=== PATIENT | male | born 1945 | race Caucasian/White ===

== ENCOUNTER 2024-10-06 13:25 | Inpatient (IN) | payer MEDICARE ==
[~2024-10-06] VITALS: Ht 172.7 cm; Wt 82.5 kg
[~2024-10-06 13:25] MED LIST: IBUP-1985 PO
[2024-10-06] MEDS: normal saline 1000ml 1,000 ML IV ONE (15:39)
[2024-10-06] MEDS: acetaminophen 1,000mg/100ml IV 100 ML IV ONE (15:39)
[2024-10-06 15:45] LABS: BASOPHILS % (AUTO) 0.3 % (0-1); EOSINOPHILS % (AUTO) 0.1 % (0-6); HEMATOCRIT 47.6 % (42.0-52.0); LYMPHOCYTES # (AUTO) 0.3 X10'3 (1.1-4.8); LYMPHOCYTES % (AUTO) 2.3 % (21-51); MEAN CORPUSCULAR HEMOGLOBIN 31.6 PG (27.0-31.0); MEAN CORPUSCULAR HGB CONC 33.6 g/dL (33.0-36.5); MEAN CORPUSCULAR VOLUME 94.2 FL (78-98); MEAN PLATELET VOLUME 7.5 FL (7.4-10.4); MONOCYTES # (AUTO) 0.4 X10'3 (0-0.9); MONOCYTES % (AUTO) 2.8 % (2-12); NEUTROPHILS # (AUTO) 13.7 X10'3 (1.8-7.7); NEUTROPHILS % (AUTO) 94.5 % (42-75); PLATELET COUNT 267 X10'3 (140-440); RED BLOOD COUNT 5.05 X10'6 (4.70-6.10); RED CELL DISTRIBUTION WIDTH 14.1 % (11.5-14.5); WHITE BLOOD COUNT 14.5 X10'3 (4.5-11.0)
[2024-10-06 16:02] LABS: ALANINE AMINOTRANSFERASE 26 U/L (12-78); ALBUMIN 3.6 G/DL (3.4-5.0); ALBUMIN/GLOBULIN RATIO 0.7 (1.1-1.5); ALKALINE PHOSPHATASE 94 IU/L (46-116); ANION GAP 10 (8-16); ASPARTATE AMINO TRANSFERASE 17 U/L (10-37); BILIRUBIN,TOTAL 0.7 MG/DL (0.1-1.0); BLOOD UREA NITROGEN 19 MG/DL (7-18); BUN/CREATININE RATIO 17.3 (10.0-20.0); CALCIUM 9.2 MG/DL (8.5-10.1); CHLORIDE 101 MMOL/L (99-107); GLUCOSE 133 MG/DL (70-104); POTASSIUM 3.8 MMOL/L (3.5-5.1); SODIUM 138 MMOL/L (135-145); TOTAL CARBON DIOXIDE 27.4 MMOL/L (24-32); TOTAL PROTEIN 8.7 G/DL (6.4-8.2); eCRCL 53 ML/MIN; eGFR 65 ML/MIN
[2024-10-06] MEDS: ringers solution, lacted 1,000 ML IV ONE (16:51)
[2024-10-06 17:25] LABS: BILIRUBIN,URINE NEGATIVE (Neg); CLARITY,URINE CLEAR (Clear); COLOR,URINE YELLOW (Yellow); GLUCOSE, URINE NEGATIVE (Neg); KETONES,URINE 15 mg/dl (Neg); LEUKOCYTE ESTERASE ,URINE NEGATIVE (Neg); NITRITES, URINE NEGATIVE (Neg); OCCULT BLOOD,URINE NEGATIVE (Neg); PROTEIN,URINE 30 mg/dl (Neg); UROBILINOGEN,URINE 0.2 E.U/dL (0.2-1.0)
[2024-10-06 18:03] LABS: UA COLLECTION TYPE NON-SPECIFIED
[2024-10-06 18:09] LABS: RBC,URINE 0-2 /HPF (0-2)
[2024-10-06 18:10] LABS: BACTERIA,URINE FEW /HPF (Neg); HYALINE CASTS 0-3 /LPF (NEGATIVE); SQUAMOUS EPITHELIAL CELL,UR FEW /LPF (FEW)
[2024-10-06] MEDS: CefTRIAXone 2gm/D5W 50ml BAG 50 ML IV ONE (22:41)
[2024-10-06 23:12] LABS: GLUCOSE,CSF 76 MG/DL (40-75); TOTAL PROTEIN,CSF 65 MG/DL (30-60)
[2024-10-06 23:14] LABS: APPEARANCE,CSF SL HAZY
[2024-10-06 23:15] LABS: CSF SUPERNATANT COLOR XANTHOCHROMIC; CSF VOLUME 9 ML; TUBE# COUNTED 4
[2024-10-06 23:36] LABS: CSF RBC 1680 /CU MM (0); CSF WBC CT 5 /CU MM (0-5)
[2024-10-06] MEDS: ketorolac trometh 15mg/ml vial 15 MG/ML ML IV ONE (23:41)
[2024-10-06] MEDS ORDERED: vancomycin inj 1,000 MG in normal saline 250ml IV soln 250 ML IV ONE (23:50)
[2024-10-07] MEDS: vancomycin/NS 1 GM ADD-VANTAGE 250 ML IV ONE (00:08)
[2024-10-07] MEDS ORDERED: ACET-1008 PO (01:34)
[2024-10-07] MEDS ORDERED: DICL100G31 TOP (01:35)
[2024-10-07] MEDS: NORMAL SALINE IV SCH (02:15)
[2024-10-07] MEDS: ACYCLOVIR IV SCH (02:15)
[2024-10-07] MEDS ORDERED: ondansetron/PF 4mg/2ml inj IV PRN (02:20)
[2024-10-07] MEDS ORDERED: potassium Cl 40MEQ/1/2NS 520ml 520 ML IV PRN (02:20)
[2024-10-07] MEDS ORDERED: magnesium sulf-water 4G/100mL 100 ML IV PRN (02:20)
[2024-10-07] MEDS ORDERED: magnesium Cl slow-release 64mg tablet PO PRN (02:20)
[2024-10-07] MEDS ORDERED: magnesium hydroxide 30ml (MOM) UD suspension PO PRN (02:20)
[2024-10-07] MEDS ORDERED: acetaminophen 325mg tablet PO PRN (02:20)
[2024-10-07] MEDS ORDERED: mag hydrox/Alum hydrox/simeth 30ml oral suspension PO PRN (02:20)
[2024-10-07] MEDS ORDERED: potassium Cl 20 mEq SR tablet PO PRN (02:20)
[2024-10-07] MEDS ORDERED: magnesium sulf-water 2g/50mL 50 ML IV PRN (02:20)
[2024-10-07] MEDS ORDERED: morphine 2 MG/ML inj. syringe IV PRN (02:20)
[2024-10-07] MEDS: acetaminophen 1,000mg/100ml IV 100 ML IV ONE (02:30)
[2024-10-07 02:46] LABS: APTT 29 SECONDS (22-32); INR 1.1 INR; PROTHROMBIN TIME 11.6 SECONDS (9.0-12.0)
[2024-10-07] MEDS: normal saline 1000ml 1,000 ML IV SCH (02:52)
[2024-10-07] MEDS: vancomycin/NS 1 GM ADD-VANTAGE 250 ML X 1 DOSE IV STA (07:33)
[2024-10-07] MEDS: K and/or MAG REPLACEMENT MC SCH (08:00)
[2024-10-07] MEDS ORDERED: VANCOMYCIN 1,500MG inj. 1,500 MG in normal saline 500ml IV soln 300 ML IV SCH (08:00)
[2024-10-07] MEDS: heparin, porcine 5000 units/ml vial SQ SCH (08:00)
[2024-10-07] MEDS: docusate sod 100mg capsule PO SCH (08:00)
[2024-10-07] MEDS: GADOTERATE MEGLUMINE 7.5 MMOL/15 ML VIAL IV ONE (13:10)
[2024-10-07] MEDS: acetaminophen 325mg tablet PO PRN (13:53)
[2024-10-07 15:00] VITALS: BP 114/53; PULSE 76; RESP 19; TEMP 98.3; TEMP 99.6; O2SAT 94
[2024-10-07 17:30] VITALS: RESP 19; O2SAT 96
[2024-10-07 18:00] VITALS: BP 138/64; PULSE 76; RESP 10; TEMP 99.7; O2SAT 96
[2024-10-07] MEDS ORDERED: CHOL125C7 PO (18:25)
[2024-10-07] MEDS ORDERED: MULT-1172 PO (18:25)
[2024-10-07] MEDS: vancomycin/NS 1 GM ADD-VANTAGE 250 ML IV SCH (19:08)
[2024-10-07] MEDS: DICLOFENAC SODIUM 1% gel 1 50GM tube TP SCH (19:09)
[2024-10-07 20:00] VITALS: RESP 10; O2SAT 96
[2024-10-07] MEDS: CefTRIAXone 2gm/D5W 50ml BAG 50 ML IV SCH (21:48)
[2024-10-07 22:00] VITALS: BP 132/55; PULSE 73; RESP 20; TEMP 97.8; O2SAT 93
[2024-10-07] MEDS ORDERED: CefTRIAXone/D5W-Rocephin 1gm 50 ML IV SCH (23:00)
[2024-10-08] VITALS (11 sets, daily range): BP systolic 117–149; BP diastolic 61–91; PULSE 74–152; RESP 16–20; TEMP 97.1–100; O2SAT 90–95
[2024-10-08] MEDS: metoprolol tartrate 1mg/ml inj IV ONE ×2 (02:05→03:52)
[2024-10-08 06:41] LABS: BASOPHILS # (AUTO) 0.1 X10'3 (0-0.2); BASOPHILS % (AUTO) 0.6 % (0-1); EOSINOPHILS % (AUTO) 0.1 % (0-6); HEMATOCRIT 41.6 % (42.0-52.0); LYMPHOCYTES # (AUTO) 1.3 X10'3 (1.1-4.8); LYMPHOCYTES % (AUTO) 9.5 % (21-51); MEAN CORPUSCULAR HEMOGLOBIN 31.8 PG (27.0-31.0); MEAN CORPUSCULAR HGB CONC 33.6 g/dL (33.0-36.5); MEAN CORPUSCULAR VOLUME 94.8 FL (78-98); MONOCYTES % (AUTO) 7.4 % (2-12); NEUTROPHILS # (AUTO) 11.2 X10'3 (1.8-7.7); NEUTROPHILS % (AUTO) 82.4 % (42-75); PLATELET COUNT 234 X10'3 (140-440); RED BLOOD COUNT 4.39 X10'6 (4.70-6.10); RED CELL DISTRIBUTION WIDTH 13.9 % (11.5-14.5); WHITE BLOOD COUNT 13.6 X10'3 (4.5-11.0)
[2024-10-08 06:56] LABS: ALANINE AMINOTRANSFERASE 41 U/L (12-78); ALBUMIN 2.6 G/DL (3.4-5.0); ALBUMIN/GLOBULIN RATIO 0.7 (1.1-1.5); ALKALINE PHOSPHATASE 104 IU/L (46-116); ANION GAP 10 (8-16); ASPARTATE AMINO TRANSFERASE 48 U/L (10-37); BILIRUBIN,TOTAL 0.4 MG/DL (0.1-1.0); BLOOD UREA NITROGEN 17 MG/DL (7-18); BUN/CREATININE RATIO 16.7 (10.0-20.0); CALCIUM 8.4 MG/DL (8.5-10.1); CHLORIDE 108 MMOL/L (99-107); CREATININE 1.02 MG/DL (0.60-1.10); GLUCOSE 106 MG/DL (70-104); MAGNESIUM 1.9 MG/DL (1.5-2.4); PHOSPHORUS 2.2 MG/DL (2.3-4.5); POTASSIUM 3.4 MMOL/L (3.5-5.1); SODIUM 142 MMOL/L (135-145); TOTAL CARBON DIOXIDE 24.4 MMOL/L (24-32); TOTAL PROTEIN 6.6 G/DL (6.4-8.2); eCRCL 57 ML/MIN; eGFR 70 ML/MIN
[2024-10-08] MEDS: metoprolol succinate 25mg (24-HOUR) SR. Tablet PO SCH (08:21)
[2024-10-08] MEDS: potassium Cl 20 mEq SR tablet PO PRN (08:21)
[2024-10-08] MEDS ORDERED: pantoprazole 40 MG vial IV SCH (12:55)
[2024-10-08] MEDS: pantoprazole 40 MG vial IV ONE (14:17)
[2024-10-08 14:27] LABS: HEMATOCRIT 40.5 % (42.0-52.0); HEMOGLOBIN 13.6 g/dl (14.0-17.9); MEAN CORPUSCULAR HEMOGLOBIN 31.7 PG (27.0-31.0); MEAN CORPUSCULAR HGB CONC 33.6 g/dL (33.0-36.5); MEAN CORPUSCULAR VOLUME 94.3 FL (78-98); MEAN PLATELET VOLUME 7.9 FL (7.4-10.4); PLATELET COUNT 220 X10'3 (140-440); RED CELL DISTRIBUTION WIDTH 13.8 % (11.5-14.5); WHITE BLOOD COUNT 12.9 X10'3 (4.5-11.0)
[2024-10-08] MEDS: VANCOMYCIN LEVEL IV ONE (19:49)
[2024-10-08] MEDS ORDERED: apixaban 5mg tablet PO SCH (20:00)
[2024-10-08] MEDS: HYDROcodone/acetaminophen 5mg/325mg tablet PO PRN (20:01)
[2024-10-08] MEDS: vancomycin/NS 1 GM ADD-VANTAGE 250 ML IV SCH (20:02)
[2024-10-08 20:06] LABS: HEMATOCRIT 43.2 % (42.0-52.0); HEMOGLOBIN 14.4 g/dl (14.0-17.9); MEAN CORPUSCULAR HEMOGLOBIN 31.4 PG (27.0-31.0); MEAN CORPUSCULAR HGB CONC 33.4 g/dL (33.0-36.5); MEAN PLATELET VOLUME 7.8 FL (7.4-10.4); PLATELET COUNT 247 X10'3 (140-440); RED CELL DISTRIBUTION WIDTH 14.1 % (11.5-14.5); WHITE BLOOD COUNT 13.1 X10'3 (4.5-11.0)
[2024-10-09] VITALS (20 sets, daily range): BP systolic 121–165; BP diastolic 58–105; PULSE 90–134; RESP 19–40; TEMP 97.2–100.9; O2SAT 90–96
[2024-10-09] MEDS: metoprolol tartrate 1mg/ml inj IV SCH ×2 (00:49→01:50)
[2024-10-09] MEDS: diltiazem-NS 100mg/100ml 100 ML IV SCH (06:16)
[2024-10-09] MEDS: metoprolol succinate 25mg (24-HOUR) SR. Tablet PO SCH (07:11)
[2024-10-09] MEDS: pantoprazole 40 MG vial IV SCH (07:12)
[2024-10-09] MEDS: levalbuterol 0.63mg/3ml nebule IH ONE (07:30)
[2024-10-09 08:32] LABS: ALANINE AMINOTRANSFERASE 58 U/L (12-78); ALBUMIN 2.7 G/DL (3.4-5.0); ALBUMIN/GLOBULIN RATIO 0.6 (1.1-1.5); ALKALINE PHOSPHATASE 150 IU/L (46-116); ANION GAP 16 (8-16); ASPARTATE AMINO TRANSFERASE 56 U/L (10-37); BILIRUBIN,TOTAL 0.6 MG/DL (0.1-1.0); BLOOD UREA NITROGEN 20 MG/DL (7-18); BUN/CREATININE RATIO 21.1 (10.0-20.0); CALCIUM 8.8 MG/DL (8.5-10.1); CHLORIDE 108 MMOL/L (99-107); CREATININE 0.95 MG/DL (0.60-1.10); GLUCOSE 131 MG/DL (70-104); SODIUM 145 MMOL/L (135-145); TOTAL CARBON DIOXIDE 20.9 MMOL/L (24-32); TOTAL PROTEIN 7.3 G/DL (6.4-8.2); eCRCL 61 ML/MIN; eGFR 76 ML/MIN
[2024-10-09 09:40] LABS: BASOPHILS # (AUTO) 0.1 X10'3 (0-0.2); BASOPHILS % (AUTO) 0.8 % (0-1); EOSINOPHILS % (AUTO) 0.2 % (0-6); HEMATOCRIT 43.7 % (42.0-52.0); HEMOGLOBIN 14.5 g/dl (14.0-17.9); LYMPHOCYTES # (AUTO) 0.5 X10'3 (1.1-4.8); LYMPHOCYTES % (AUTO) 3.4 % (21-51); MEAN CORPUSCULAR HEMOGLOBIN 31.4 PG (27.0-31.0); MEAN PLATELET VOLUME 8.5 FL (7.4-10.4); MONOCYTES # (AUTO) 0.9 X10'3 (0-0.9); MONOCYTES % (AUTO) 5.7 % (2-12); NEUTROPHILS # (AUTO) 14.5 X10'3 (1.8-7.7); NEUTROPHILS % (AUTO) 89.9 % (42-75); PLATELET COUNT 256 X10'3 (140-440); RED CELL DISTRIBUTION WIDTH 13.8 % (11.5-14.5); WHITE BLOOD COUNT 16.1 X10'3 (4.5-11.0)
[2024-10-09] MEDS: ipratropium/albuterol 3ml nebule NEB PRN (10:56)
[2024-10-09 11:46] LABS: OCCULT BLOOD STOOL NEGATIVE (Neg)
[2024-10-09] MEDS: loperamide 2mg capsule PO ONE (14:49)
[2024-10-09] MEDS: lactobacillus rhamnosus 10,000 MMU CELLS/CAPSULE PO SCH (14:49)
[2024-10-09] MEDS: morphine 2 MG/ML inj. syringe IV PRN (15:47)
[2024-10-09] MEDS: diltiazem CD 120mg capsule (once-daily) PO SCH (17:47)
[2024-10-09 19:19] LABS: D-DIMER 1.71 MG/L FEU (0-0.50)
[2024-10-09] MEDS ORDERED: VANCOmycin 1250MG/NS 250ml Bag 250 ML IV SCH (20:00)
[2024-10-09] MEDS ORDERED: iohexol 350MG/ML 100ml bottle IV ONE (20:50)
[2024-10-09] MEDS: apixaban 5mg tablet PO SCH (21:36)
[2024-10-09] MEDS: clindamycin 600mg/D5W 50ml 50 ML IV SCH (21:37)
[2024-10-10] VITALS (15 sets, daily range): BP systolic 115–156; BP diastolic 66–93; PULSE 83–143; RESP 18–28; TEMP 97.3–98.6; O2SAT 88–96
[2024-10-10 07:10] LABS: HSV 1 PCR Negative (Negative); HSV 2 PCR Negative (Negative)
[2024-10-10 08:27] LABS: BASOPHILS % (AUTO) 0.4 % (0-1); EOSINOPHILS % (AUTO) 0.4 % (0-6); HEMATOCRIT 37.6 % (42.0-52.0); HEMOGLOBIN 12.7 g/dl (14.0-17.9); LYMPHOCYTES % (AUTO) 8.2 % (21-51); MEAN CORPUSCULAR HEMOGLOBIN 31.1 PG (27.0-31.0); MEAN CORPUSCULAR HGB CONC 33.7 g/dL (33.0-36.5); MEAN CORPUSCULAR VOLUME 92.2 FL (78-98); MEAN PLATELET VOLUME 8.2 FL (7.4-10.4); MONOCYTES # (AUTO) 1.1 X10'3 (0-0.9); MONOCYTES % (AUTO) 9.1 % (2-12); NEUTROPHILS % (AUTO) 81.9 % (42-75); PLATELET COUNT 250 X10'3 (140-440); RED BLOOD COUNT 4.08 X10'6 (4.70-6.10); RED CELL DISTRIBUTION WIDTH 13.8 % (11.5-14.5); WHITE BLOOD COUNT 12.2 X10'3 (4.5-11.0)
[2024-10-10 08:45] LABS: ALANINE AMINOTRANSFERASE 40 U/L (12-78); ALBUMIN 2.1 G/DL (3.4-5.0); ALBUMIN/GLOBULIN RATIO 0.5 (1.1-1.5); ALKALINE PHOSPHATASE 109 IU/L (46-116); ANION GAP 9 (8-16); ASPARTATE AMINO TRANSFERASE 25 U/L (10-37); BILIRUBIN,TOTAL 0.7 MG/DL (0.1-1.0); BLOOD UREA NITROGEN 21 MG/DL (7-18); BUN/CREATININE RATIO 24.1 (10.0-20.0); CALCIUM 8.4 MG/DL (8.5-10.1); CHLORIDE 107 MMOL/L (99-107); CREATININE 0.87 MG/DL (0.60-1.10); GLUCOSE 117 MG/DL (70-104); PHOSPHORUS 2.6 MG/DL (2.3-4.5); POTASSIUM 3.3 MMOL/L (3.5-5.1); SODIUM 142 MMOL/L (135-145); THYROID STIMULATING HORMONE 1.54 ulU/ml (0.34-4.50); TOTAL CARBON DIOXIDE 26.5 MMOL/L (24-32); TOTAL PROTEIN 6.2 G/DL (6.4-8.2); eCRCL 67 ML/MIN; eGFR 85 ML/MIN
[2024-10-10] MEDS ORDERED: magnesium Cl slow-release 64mg tablet PO PRN (09:55)
[2024-10-10] MEDS ORDERED: magnesium sulf-water 4G/100mL 100 ML IV PRN (09:55)
[2024-10-10] MEDS ORDERED: potassium Cl 20 mEq SR tablet PO PRN (09:55)
[2024-10-10] MEDS ORDERED: potassium Cl 40MEQ/1/2NS 520ml 520 ML IV PRN (09:55)
[2024-10-10] MEDS ORDERED: magnesium sulf-water 2g/50mL 50 ML IV PRN (09:55)
[2024-10-10] MEDS: potassium Cl 20 mEq SR tablet PO PRN (10:22)
[2024-10-10] MEDS: diltiazem 5mg/ml 5ml inj. IV ONE (10:26)
[2024-10-10] MEDS: prednisone 10mg tablet PO SCH (12:42)
[2024-10-10 13:35] LABS: PRO BRAIN NATRIURETIC PEPTIDE 6895 PG/ML (0-450)
[2024-10-10] MEDS: ampicillin inj 2 GM in normal saline 100ml IV soln 100 ML IV SCH (13:51)
[2024-10-10] MEDS: albuterol 2.5 MG/3 ML nebule NEB PRN (15:48)
[2024-10-10 17:11] LABS: CRYPTOCOCCUS AG TITER, CSF Not Indicated (.); CRYPTOCOCCUS ANTIGEN, CSF Negative (Negative)
[2024-10-10] MEDS: K and/or MAG REPLACEMENT MC SCH (20:00)
[2024-10-10] MEDS: diltiazem SR 60mg capsule (twice daily) PO SCH (20:14)
[2024-10-10] MEDS: furosemide 40mg/4ml inj IV SCH (20:15)
[2024-10-11] VITALS (10 sets, daily range): BP systolic 110–134; BP diastolic 51–69; PULSE 74–98; RESP 16–23; TEMP 96.9–97.3; O2SAT 93–96
[2024-10-11] MEDS ORDERED: VANCOMYCIN LEVEL IV ONE (07:30)
[2024-10-11 08:03] LABS: BASOPHILS % (AUTO) 0.4 % (0-1); EOSINOPHILS % (AUTO) 0.1 % (0-6); HEMATOCRIT 39.3 % (42.0-52.0); HEMOGLOBIN 13.2 g/dl (14.0-17.9); LYMPHOCYTES % (AUTO) 8.6 % (21-51); MEAN CORPUSCULAR HGB CONC 33.7 g/dL (33.0-36.5); MEAN CORPUSCULAR VOLUME 92.2 FL (78-98); MEAN PLATELET VOLUME 7.8 FL (7.4-10.4); MONOCYTES # (AUTO) 0.8 X10'3 (0-0.9); MONOCYTES % (AUTO) 7.5 % (2-12); NEUTROPHILS # (AUTO) 9.2 X10'3 (1.8-7.7); NEUTROPHILS % (AUTO) 83.4 % (42-75); PLATELET COUNT 285 X10'3 (140-440); RED BLOOD COUNT 4.26 X10'6 (4.70-6.10); RED CELL DISTRIBUTION WIDTH 13.8 % (11.5-14.5)
[2024-10-11 08:30] LABS: ALANINE AMINOTRANSFERASE 64 U/L (12-78); ALBUMIN 2.1 G/DL (3.4-5.0); ALBUMIN/GLOBULIN RATIO 0.5 (1.1-1.5); ALKALINE PHOSPHATASE 129 IU/L (46-116); ANION GAP 5 (8-16); ASPARTATE AMINO TRANSFERASE 43 U/L (10-37); BILIRUBIN,TOTAL 0.5 MG/DL (0.1-1.0); BLOOD UREA NITROGEN 23 MG/DL (7-18); BUN/CREATININE RATIO 26.7 (10.0-20.0); CALCIUM 8.7 MG/DL (8.5-10.1); CHLORIDE 109 MMOL/L (99-107); CREATININE 0.86 MG/DL (0.60-1.10); GLUCOSE 124 MG/DL (70-104); MAGNESIUM 2.2 MG/DL (1.5-2.4); PHOSPHORUS 2.4 MG/DL (2.3-4.5); POTASSIUM 3.8 MMOL/L (3.5-5.1); SODIUM 145 MMOL/L (135-145); TOTAL CARBON DIOXIDE 30.7 MMOL/L (24-32); TOTAL PROTEIN 6.3 G/DL (6.4-8.2); eCRCL 67 ML/MIN; eGFR 86 ML/MIN
[2024-10-11] MEDS ORDERED: PRED10TA PO (10:19)
[2024-10-11] MEDS ORDERED: METO-395 PO (10:19)
[2024-10-11] MEDS ORDERED: CARSR60C PO (10:19)
[2024-10-11] MEDS ORDERED: APIX5TAB3 PO (10:19)
[2024-10-11] MEDS ORDERED: IPRA4AER INH (10:57)
[2024-10-11] MEDS ORDERED: ALBU18HF2 IH (10:58)
[2024-10-11] MEDS ORDERED: AMOX500C2 PO (11:37)
[2024-10-11] MEDS ORDERED: FURO-150 PO (12:12)
[2024-10-11] MEDS ORDERED: POTA-207 PO (12:16)
[2024-10-11 13:31] LABS: VDRL, CSF Non Reactive (Non Rea:<1:1)
[2024-10-11] MEDS ORDERED: LACT1CAP26 PO (14:58)
[2024-10-12] MEDS ORDERED: pantoprazole 40mg Tablet.DR PO SCH (07:30)
== END 2024-10-11 16:50 | disposition home health service (06) | DRG 871 ==
LOC: ER 13:25 → ED HOLD 10-07 01:57 → EDBEDREQ 10-07 10:50 → PCU 3S 10-07 15:29
PROVIDERS: ADMIT Internal Medicine Critical Care Medicine; ATTEND Family Medicine
PROC: 009U3ZX Drainage of Spinal Canal, Percutaneous Approach, Diagnostic (ICD-10-PCS; principal; 2024-10-06)
PROC: 5A09357 Assistance with Respiratory Ventilation, Less than 24 Consecutive Hours, Continuous Positive Airway Pressure (ICD-10-PCS; 2024-10-08)
PROC: B32T1ZZ Computerized Tomography (CT Scan) of Left Pulmonary Artery using Low Osmolar Contrast (ICD-10-PCS; 2024-10-09)
PROC: B3201ZZ Computerized Tomography (CT Scan) of Thoracic Aorta using Low Osmolar Contrast (ICD-10-PCS; 2024-10-09)
PROC: B32S1ZZ Computerized Tomography (CT Scan) of Right Pulmonary Artery using Low Osmolar Contrast (ICD-10-PCS; 2024-10-09)
DX: A40.8 Other streptococcal sepsis (principal); I50.33 Acute on chronic diastolic (congestive) heart failure; J18.9 Pneumonia, unspecified organism; L03.116 Cellulitis of left lower limb; I13.0 Hypertensive heart and chronic kidney disease with heart failure and stage 1 through stage 4 chronic kidney disease, or unspecified chronic kidney disease; Z20.822 Contact with and (suspected) exposure to COVID-19; N18.30 Chronic kidney disease, stage 3 unspecified; R73.9 Hyperglycemia, unspecified; G89.29 Other chronic pain; M54.9 Dorsalgia, unspecified; G47.33 Obstructive sleep apnea (adult) (pediatric); I08.1 Rheumatic disorders of both mitral and tricuspid valves; I48.0 Paroxysmal atrial fibrillation; Z99.81 Dependence on supplemental oxygen; I48.91 Unspecified atrial fibrillation
CPT/HCPCS: 36415; 70450; 70553; 71045; 71275; 72158; 80053; 80202; 81001; 82272; 82945; 83605; 83735; 83880; 83916; 84100; 84132; 84145; 84157; 84443; 85025; 85027; 85379; 85610; 85730; 86592; 87015; 87040; 87070; 87077; 87081; 87088; 87186; 87502; 87503; 87529; 87811; 87899; 89051; 93005; 93306; 93971; 94640; 94760; 96365; 96367; 96375; 97161; 97530; 99291; A4615; A4620; A6250; A6258; G0378; J0131; J0133; J0290; J0696; J1644; J1885; J1940; J2270; J2470; J3370; J3490; J7030; J7040; J7050; J7120; J7512; J7614; Q9967

== ENCOUNTER 2025-06-10 06:38 | Emergency (ER) | payer MEDICARE ==
[~2025-06-10] VITALS: Ht 172.7 cm; Wt 86.0 kg
[~2025-06-10 06:38] MED LIST changes: +ACET-1015 PO; +APIX5TAB5 PO; +CHOL100046 PO; +CYAN500T71 PO; +DICL100G59 TOP; -IBUP-1985 PO; +MULT-1172 PO
--- NOTE | 2025-06-10 07:29 | Physician Documentation ---
History of Present Illness ~ Chief Complaint: Headache Stated Complaint: HEADACHE/POST ALAYNA Time Seen by MD: 07:21 Primary Medical Doctor: Dr. He RAJPUT The patient is a 79-year-old male with a history of atrial fibrillation, melena, hyperlipidemia, chronic back pain. He underwent a Watchman procedure three weeks ago. He is still currently taking apixaban. He woke up at 3:00 a.m. with a headache. This is his usual time of awakening as he works at [employer]. The headache is frontal. He does not usually get headaches. He did not take his Eliquis as scheduled 6:00 a.m. today but his last dose was yesterday 6:00 p.m. He denies vomiting and has very mild nausea. Denies any recent illness, chills or fever. He denies neck pain. No associated neurological symptoms. Medication Reconciliation Allergies: Coded Allergies: No Known Allergies (Unverified , 06/10/25) Scheduled Acetaminophen (Acetaminophen), 1 TAB PO Q6H, (Reported) Apixaban (Eliquis), 1 TAB PO BID, (Reported) Cholecalciferol (Vitamin D3) (Vitamin D3), 1 CAP PO DAILY, (Reported) Cyanocobalamin* (Vitamin B-12*), 1 TAB PO DAILY, (Reported) Multivit-Min/FA/Lycopen/Lutein (Centrum Silver Men Tablet), 1 TAB PO DAILY, (Reported) Scheduled PRN Diclofenac Sodium (Diclofenac Sodium), 1 APPLIC TOP Q6H PRN for pain, (Reported) Past Medical History Patient History: FH: Parkinson's disease Brother FH: coronary artery bypass surgery FATHER, FH: diabetes mellitus FATHER, FH: heart failure MOTHER, Review of Systems ROS Constitutional: Denies chills, fatigue, fever, weight gain or weight loss. HEENT: Denies hearing loss, sinus pressure or visual changes. Respiratory: Denies cough, shortness of breath or wheezing. Cardiovascular: Denies chest pain, pain while walking (claudication), edema or palpitations. Gastrointestinal: Denies abdominal pain, blood in stool, constipation, diarrhea, heartburn, loss of appetite, nausea or vomiting. Genitourinary: Denies painful urination (dysuria), excessive amount of urine (polyuria) or urinary frequency. Metabolic/Endocrine: Denies cold intolerance, heat intolerance, excessive thirst (polydipsia) or excessive hunger (polyphagia). Neurological: Headache. Psychiatric: Denies anxiety or depression. Integumentary: Denies breast discharge, breast lump, hives, mole change(s), rash or skin lesion. Musculoskeletal: Denies back pain, joint pain, joint swelling or neck pain. Hematologic: Denies easily bleeding, easily bruises, lymphedema or issues with blood clots. Immunologic: Denies food allergies or seasonal allergies. Physical Exam Vital Signs: Temperature: 97.9, Source: Temporal, Heart Rate: 68, Respiratory Rate: 18, BP: 139/66, Pulse Oximetry: 95, Weight: 86.000 Oxygen Flow Rate: 0 Physical Exam Physical Exam Vitals and nursing note reviewed. Constitutional: General: Patient is awake, alert, oriented x 4 in no acute distress and well appearing. Speech is clear and lucid. Appearance: Normal appearance. Patient is not ill-appearing, toxic-appearing or diaphoretic. HENT: Head: Normocephalic and atraumatic. Mouth/Throat: Mouth: Mucous membranes are moist. Pharynx: Oropharynx is clear. Eyes: General: No scleral icterus. Extraocular Movements: Extraocular movements intact. Pupils: Pupils are equal, round, and reactive to light. Neck: Supple, no Kernig or Brudzinski sign. Cardiovascular: Rate and Rhythm: Normal rate and regular rhythm. Heart sounds: No murmur heard. Pulmonary: Effort: No respiratory distress. Breath sounds: No wheezing, rhonchi or rales. Abdominal: General: There is no distension. Palpations: There is no fluid wave, hepatomegaly or mass. Tenderness: There is no abdominal tenderness. There is no guarding. Musculoskeletal: General: No swelling or deformity. Skin: Coloration: Skin is not jaundiced. Findings: No erythema or rash. Neurological examination: GCS: E-4, V-5, M-6 Motor strength: [motor strength] Sensory: [sensory] cytology technologist: II - XII intact Equilibratory intact Progress Progress Note 06/10/2025, 8:40 a.m.: CT scan of the head shows no acute findings. The patient is feeling better and would like to go home. I am going to provide a work excuse for today. Results/Orders Results/Orders Orders - DE MARLENI LAIRDDRIC MD Ct Head (06/10/25 07:34) Completed Orders - CISCO TORRES MD Ct Head (06/10/25 07:34) Ondansetron Disint. Tablet (Zofran Odt T (06/10/25 07:35) Hydrocodone/Apap 5/325mg Tab ([place] 5/32 (06/10/25 07:35) Medications Received in ER Medications (Trade) Dose Ordered Sig/Kathy Route PRN Reason Start Time Stop Time Status Last Admin Dose Admin (Zofran ODT tablet) 4 mg ONCE ONCE PO 06/10/25 07:35 06/10/25 07:38 DC 06/10/25 07:40 4 MG ([place] 5/325mg tablet) 1 tab ONCE ONCE PO 06/10/25 07:35 06/10/25 07:38 DC 06/10/25 07:40 1 TAB Vital Signs 06/10/25 06/10/25 06/10/25 06:57 07:08 08:13 Temp 97.9 Pulse 66 68 69 Resp 16 18 16 B/P (MAP) 114/59 139/66 (90) 136/74 (94) Pulse Ox 95 95 97 O2 Flow Rate 0 0 0 Medical Decision Making Additional information obtaine: family Findings This patient presented with headache. It is not thunderclap or rapidly progressive and the neurologic examination is normal so subarachnoid hemorrhage is unlikely. A head CT was obtained and shows no acute findings. There are no meningeal signs or fever so a lumbar puncture was not done. I am treating the patient's symptoms. Differential Dx:Considerations: Include: TONY-Migraine, TONY-Muscular contraction, Hemorrhage-Intracerebral, Hemorrhage-Subarachnoid, Hemorrhage-Subdural, Meningitis; Unlikely: TONY-Cluster, TONY-Hypertensive, TONY-Post lumbar puncture, Carbon monoxide toxicity, Close head injuyr, CVA, Fever induced, Hemorrhage-Epid ural, Mass lesion, Post-traumtic, Pseudotumor cerebri, Sinusitis, Temporal arteritis, Trigeminal neuralgia, Other Departure Disposition: 01 HOME / SELF CARE / HOMELESS Impression: Primary Impression: Headache Condition: Stable Discharge Instructions: Headache Referrals: NO PRIMARY CARE PROVIDER (PCP) Education Educated: Patient, Family Educated regarding: diagnosis, treatment, prognosis Signature Scribe Signature: . Attestation: . CISCO TORRES MD Jun 10, 2025 07:29
[2025-06-10] MEDS: HYDROcodone/acetaminophen 5mg/325mg tablet PO ONE (07:40)
[2025-06-10] MEDS: ondansetron 4mg rapidly disintigrating tab PO ONE (07:40)
--- NOTE | 2025-06-10 08:04 | RADIOLOGY REPORT ---
CT brain without contrast CLINICAL INDICATION: Headache, on Eliquis FINDINGS: The study was performed in a multidetector scanner. This study performed taking axial images from the skull base up to the vertex. Both brain and bone windows are photographed. Dose lowering techniques have been used including automated exposure control and adjustment of mA and/or KV according to patient size. Normal and symmetrical shape and density of brain parenchyma above and below the tentorium is seen. There is no mass, midline shift or hydrocephalus. No intra/extra-axial collections demonstrated. There is no intracranial hemorrhage. The calvarium is intact. IMPRESSION: 1. No acute intracranial pathology Computed Tomographic Radiation Dosimetry Report: Total CTDI vol = 65 mGy Total DLP = 1250 mGy-cm All CT scans at this medical facility are performed using dose modulation techniques as appropriate to a performed exam including the following: Automated exposure control was utilized; adjustment of the MA and/or KvP according to patient size; and use of iterative reconstruction technique.
[2025-06-10 08:54] VITALS: BP 121/61; PULSE 66; RESP 16; TEMP 98.6; O2SAT 95
== END 2025-06-10 09:00 | disposition home or self-care (01) ==
LOC: ER 06:39
DX: R51.9 Headache, unspecified (principal); G89.29 Other chronic pain; E78.5 Hyperlipidemia, unspecified; I48.91 Unspecified atrial fibrillation; Z79.01 Long term (current) use of anticoagulants; Z79.899 Other long term (current) drug therapy
CPT/HCPCS: 70450; 99284

== ENCOUNTER 2025-06-27 09:49 | Outpatient (CLI) | payer MEDICARE ==
[2025-06-27 10:39] LABS: CREATININE 0.94 MG/DL (0.60-1.10); TOTAL CARBON DIOXIDE 30.4 MMOL/L (24-32); eGFR 77 ML/MIN
[2025-06-27 10:46] LABS: MEAN PLATELET VOLUME 7.5 FL (7.4-10.4); RED CELL DISTRIBUTION WIDTH 13.1 % (11.5-14.5)
--- NOTE | 2025-06-28 12:46 | RADIOLOGY REPORT ---
CT POST WATCHMAN INDICATION: PRESENCE OF OTHER CARDIAC IMPLANTS AND GRAFTS TECHNIQUE: CT cardiac imaging for pulmonary vein analysis has been obtained. 3- D, MIP, and MPR images obtained. All CT scans at this facility use dose modulation, iterative reconstruction, and/or weight based dosing when appropriate to reduce radiation dose to as low as reasonably achievable. COMPARISON: CATH LAAO on DOS: 05/18/25 STUDY QUALITY: Good FINDINGS: LEFT ATRIAL APPENDAGE: In regards to the clinical question, evidence of contrast leakage into the region of the Nitinol cage beyond the PTFE fabric. Initial blush which is curvilinear on early phase which subsequently blooms on delayed phase. No contrast extension into the distal end of the left atrial appendage beyond the n itinol cage and thereore there may be successful distal occlusion of the distal end of the left atrial appendage. CARDIAC CHAMBERS: Normal cardiac size. OTHER: Diffuse peribronchial thickening which may be suggestive of chronic bronchitis. IMPRESSION: Evidence of contrast leakage into the region of the Nitinol cage with successful distal occlusion of the left atrial appendage.
== END 2025-06-27 23:59 | disposition home or self-care (01) ==
LOC: RAD 09:49
PROVIDERS: ATTEND Student in an Organized Health Care Education/Training Program
DX: Z95.818 Presence of other cardiac implants and grafts (principal)
CPT/HCPCS: 36415; 71275; 75572; 80053; 85025; Q9967